=== PATIENT | female | born 1960 | race Caucasian/White ===

== ENCOUNTER 2019-07-21 18:37 | Emergency (ER) | payer MEDICAID, OTHER ==
[~2019-07-21] VITALS: Ht 157.5 cm; Wt 63.5 kg
--- NOTE | 2019-07-21 18:50 | NUR ---
ED Nurse Note: Patient walked into ED from home with her daughter due to abdominal pain diffuse, nausea started this morning and vomiting started 3pm today. patient is alert awake x4 ambulatory, patient u pt. came with abdominal pain nausea vomiting started today. daughter at bedside. patient on athletic monitor.
[2019-07-21 19:11] VITALS: BP 150/68
--- NOTE | 2019-07-21 19:12 | Emergency Room Report ---
History of Present Illness General Chief Complaint: Abdominal Pain Source: Patient Present Illness HPI Disclaimer: Please note that this report is being documented using DRAGON technology. This can lead to erroneous entry secondary to incorrect interpretation by the dictating instrument. HPI: 59-year-old female with history of gastritis and cholelithiasis presents for evaluation of abdominal pain and vomiting. Symptoms began earlier this morning noting some faint abdominal cramping that intensified throughout the day. She is no longer passing gas and has not had any bowel movements. She notes upper abdominal pain initially but is now diffuse. States this is somewhat similar to her gastritis however is more intense than usual. She is unable to hold down solids or liquids. Denies fever chills or chest pain. Denies any dysuria hematuria or flank pain. PMH: Hypertension, hyperlipidemia, gastritis, cholelithiasis PSH: Denies Allergies: None Social Hx: Denies Allergies: Coded Allergies: No Known Allergies (Unverified , 07/21/19) Nursing Documentation-PMH Hx Gastrointestinal Problems: Yes - gastritis Review of Systems All Other Systems: negative except mentioned in HPI Physical Exam Vital Signs Date Time Temp Pulse Resp B/P (MAP) Pulse Ox O2 Delivery O2 Flow Rate FiO2 07/21/19 18:44 98.1 94 24 164/127 (139) 99 Room Air General: Awake and alert, appears very uncomfortable HEENT: NC/AT. EOMI. Cardiovascular: RRR. S1 and S2 normal. No murmur appreciated Resp: Normal work of breathing. No cough, wheezing or crackles appreciated Abdomen: Abdomen is soft, nondistended. Diffusely tender to palpation. Patient is guarding. Skin: Intact. No abrasions, laceration or rash over the exposed skin MSK: Normal tone and bulk. Moving all extremities. No obvious deformity. Neuro: Awake and alert. Mentating appropriately. Medical Decision Making Diagnostic Impression: Primary Impression: SBO (small bowel obstruction) ER Course 59-year-old female presenting for evaluation of abdominal pain vomiting and no longer passing gas or bowel movements. Differential includes but is not limited to gastritis, gastroenteritis, cystitis, nephrolithiasis, appendicitis, bowel obstruction, diverticulitis, abdominal abscess, bowel perforation, bowel ischemia. We will start broad metabolic and infectious work-up. Will send type and screen for possible surgical intervention as well as coagulation studies. Antiemetics, IV fluids and analgesics ordered. Laboratory Tests Test 07/21/19 18:55 White Blood Count 8.7 K/UL (4.8-10.8) Red Blood Count 4.85 M/UL (4.20-5.40) Hemoglobin 14.1 G/DL (12.0-16.0) Hematocrit 40.9 % (37.0-47.0) Mean Corpuscular Volume 84 FL (80-99) Mean Corpuscular Hemoglobin 29.0 PG (27.0-31.0) Mean Corpuscular Hemoglobin Concent 34.4 G/DL (32.0-36.0) Red Cell Distribution Width 10.2 % (11.6-14.8) L Platelet Count 209 K/UL (150-450) Mean Platelet Volume 8.0 FL (6.5-10.1) Neutrophils (%) (Auto) 64.3 % (45.0-75.0) Lymphocytes (%) (Auto) 28.1 % (20.0-45.0) Monocytes (%) (Auto) 5.4 % (1.0-10.0) Eosinophils (%) (Auto) 1.5 % (0.0-3.0) Basophils (%) (Auto) 0.8 % (0.0-2.0) Prothrombin Time 10.1 SEC (9.30-11.50) Prothrombin Time INR 0.9 (0.9-1.1) PTT 29 SEC (23-33) Sodium Level 138 MMOL/L (136-145) Potassium Level 3.9 MMOL/L (3.5-5.1) Chloride Level 104 MMOL/L (98-107) Carbon Dioxide Level 22 MMOL/L (21-32) Anion Gap 12 mmol/L (5-15) Blood Urea Nitrogen 12 mg/dL (7-18) Creatinine 0.7 MG/DL (0.55-1.30) Estimate Glomerular Filtration Rate > 60 mL/min (>60) Glucose Level 103 MG/DL (74-106) Calcium Level 9.8 MG/DL (8.5-10.1) Total Bilirubin 0.7 MG/DL (0.2-1.0) Aspartate Amino Transferase (AST) 18 U/L (15-37) Alanine Aminotransferase (ALT) 31 U/L (12-78) Alkaline Phosphatase 110 U/L (46-116) Total Protein 8.0 G/DL (6.4-8.2) Albumin 4.2 G/DL (3.4-5.0) Globulin 3.8 g/dL Albumin/Globulin Ratio 1.1 (1.0-2.7) Lipase 69 U/L (73-393) L Reevaluation Time: 22:14 Last Vital Signs Date Time Temp Pulse Resp B/P (MAP) Pulse Ox O2 Delivery O2 Flow Rate FiO2 07/21/19 19:05 94 24 Room Air 07/21/19 18:44 98.1 164/127 (139) 99 Reevaluation Impression Patient is found to have a small bowel obstruction with transition point in the right lower quadrant. Other lab work is within normal limits. Her pain is significantly improved and no longer vomiting. She will be transferred to [facility] per her insurance plan. Will keep NPO. Discussed the case with Dr. Kurtz. Patient is stable and appropriate for transfer. We will give further pain medication and antiemetics as needed prior to transfer. Maintenance fluids started. Family was updated at bedside; they understand and agree with this treatment plan. Disposition: XFER SHT-TRM HOSP Condition: Serious Scripts No Active Prescriptions or Reported Meds Te Armenta MD Jul 21, 2019 19:12
[2019-07-21 19:13] LABS: BASOPHILS % (AUTO) 0.8 % (0.0-2.0); EOSINOPHILS % (AUTO) 1.5 % (0.0-3.0); HEMATOCRIT 40.9 % (37.0-47.0); HEMOGLOBIN 14.1 G/DL (12.0-16.0); LYMPHOCYTES % (AUTO) 28.1 % (20.0-45.0); MEAN CORPUSCULAR VOLUME 84 FL (80-99); MONOCYTES % (AUTO) 5.4 % (1.0-10.0); NEUTROPHILS % (AUTO) 64.3 % (45.0-75.0); PLATELET COUNT 209 K/UL (150-450); RED BLOOD COUNT 4.85 M/UL (4.20-5.40); RED CELL DISTRIBUTION WIDTH 10.2 % (11.6-14.8); WHITE BLOOD COUNT 8.7 K/UL (4.8-10.8)
[2019-07-21] MEDS ORDERED: Morphine Sulfate 4mg/ml Inj (IV USE ONLY) IVP ONE ×2 (19:15→22:30)
[2019-07-21] MEDS ORDERED: Omnipaque-300 100ml vial INJ PRN (19:15)
--- NOTE | 2019-07-21 19:18 | NUR ---
HAND-OFF: Report given to Betsy OLSEN. patient on the library services coordinator. pink top drawn sent to lab.
[2019-07-21 19:33] LABS: ALANINE AMINOTRANSFERASE 31 U/L (12-78); ALBUMIN 4.2 G/DL (3.4-5.0); ALBUMIN/GLOBULIN RATIO 1.1 (1.0-2.7); ALKALINE PHOSPHATASE 110 U/L (46-116); ANION GAP 12 mmol/L (5-15); ASPARTATE AMINO TRANSFERASE 18 U/L (15-37); BILIRUBIN,TOTAL 0.7 MG/DL (0.2-1.0); BLOOD UREA NITROGEN 12 mg/dL (7-18); CALCIUM 9.8 MG/DL (8.5-10.1); CARBON DIOXIDE 22 MMOL/L (21-32); CHLORIDE 104 MMOL/L (98-107); CREATININE 0.7 MG/DL (0.55-1.30); POTASSIUM 3.9 MMOL/L (3.5-5.1); SODIUM 138 MMOL/L (136-145)
--- NOTE | 2019-07-21 19:33 | NUR ---
ED Nurse Note: Patient tolerated medication administration well. Currently resting comfortably with no s/s of acute distress. at bedside, will continue to monitor.
[2019-07-21 19:34] VITALS: BP 153/101
[2019-07-21 19:53] LABS: INR 0.9 (0.9-1.1)
--- NOTE | 2019-07-21 19:58 | NUR ---
ED Nurse Note: Patient went down for CT w/o contrast.
--- NOTE | 2019-07-21 20:12 | NUR ---
ED Nurse Note: Patient returned from CT. Resting comfortably with at bedside, will continue to monitor bradypnea while sleeping between 9-10.
--- NOTE | 2019-07-21 20:41 | Diagnostic Imaging Report ---
Clinical Indication: Abdominal pain, nausea, vomiting Technique: No oral contrast utilized, per emergency room physician request IV administration nonionic contrast. Venous phase spiral acquisition obtained through the abdomen and pelvis. Multiplanar reconstructions were generated. Total dose length product 835 mGycm. CTDIvol(s) 14 mGy. Dose reduction achieved using automated exposure control Comparison: none Findings: There is a segment of proximal ileum which is markedly distended, contains small bowel feces and demonstrates a slightly thickened wall. Distal transition point is somewhat abrupt but also somewhat tapered; the segment immediately distal to the dilated segment is slightly thick walled. More distally, the distal ileum is collapsed. There is also a fairly abrupt proximal transition, but the proximal transition point is remote from the distal transition point. The appendix is normal. There is no evidence of diverticulosis or diverticulitis. No free or loculated intraperitoneal gas or fluid is evident. The distal esophagus, stomach, duodenum are unremarkable. The liver, gallbladder, bile ducts, pancreas, spleen, adrenals, kidneys are all unremarkable. The included lung bases demonstrate some posterior dependent atelectatic changes. The bones are unremarkable. Impression: Dilated segment of proximal ileum filled with small bowel feces with fairly abrupt distal transition point. This most likely represents small bowel obstruction. However, given the thick walled small bowel distal to the transition point, enteritis as etiology of this finding is also possible. Correlate with clinical findings No other significant abnormality demonstrated Incidental finding posterior pulmonary parenchymal dependent atelectatic changes This agrees with the preliminary interpretation provided overnight by [facility] teleradiology service. The CT scanner at [facility] is accredited by the [employer] and the scans are performed using protocols designed to limit radiation exposure to as low as reasonably achievable to attain images of sufficient resolution adequate for diagnostic evaluation.
--- NOTE | 2019-07-21 23:05 | NUR ---
ED Nurse Note: Report called in to Elliott OLSEN contingents supervisor zuleika alberts [facility]. Patient is in stable condition for transfer with at bedside.
[2019-07-21 23:06] VITALS: BP 153/101
--- NOTE | 2019-07-21 23:06 | NUR ---
ED Nurse Note: Transport here for brain picker at this time.
== END 2019-07-21 23:08 | disposition short-term general hospital (02) ==
LOC: EMR 19:18
DX: K56.609 Unspecified intestinal obstruction, unspecified as to partial versus complete obstruction (principal); R11.10 Vomiting, unspecified; I10 Essential (primary) hypertension; E78.5 Hyperlipidemia, unspecified
CPT/HCPCS: 36415; 74177; 80053; 83605; 83690; 85025; 85610; 85730; 86850; 86900; 86901; 96361; 96374; 96375; 96376; J2270; J2405; Q9967; Z7502; 99284; J7030